=== PATIENT | male | born 1965 | race Caucasian/White ===

== ENCOUNTER 2018-01-23 06:09 | Inpatient (IN) | payer BC ==
[2018-01-05 14:20] VITALS: BMI 34.0
--- NOTE | 2018-01-05 15:03 | PAT Medication Instructions ---
Service Date Jan 05, 2018. Current Home Medication List Naproxen (Aleve), 220 MG PO Q12 PRN for Pain [[employer] Vitamin], 1 TAB PO QAM Medication Instructions For Your Scheduled Surgery - Check with surgeon for for instructions: Naproxen (Aleve), 220 MG PO Q12 PRN for Pain - Hold the following medications 2 weeks prior to surgery: [[employer] Vitamin], 1 TAB PO QAM If you have any questions please call us at [phone] or [phone] or [phone]
--- NOTE | 2018-01-05 15:23 | DIAGNOSTIC IMAGING REPORT ---
CHEST 2 VIEWS ROUTINE CLINICAL HISTORY: pat preoperative COMPARISON STUDY: No previous studies for comparison. FINDINGS: The bones soft tissues and hemidiaphragms are normal. The cardiomediastinal silhouette is normal. The lungs are clear. The pulmonary vasculature is normal. IMPRESSION: Negative chest. The above report was generated using voice recognition software. It may contain grammatical, syntax or spelling errors. Electronically signed by: Victor Hugo Landrum M.D. 01/05/2018 3:22 PM Dictated Date/Time: 01/05/2018 3:22 PM
[2018-01-05 15:42] LABS: PTT PATIENT 24.3 SECONDS (21.0-31.0)
[2018-01-06 06:42] LABS: HEMOGLOBIN A1C 6.6 % (4.5-5.6)
--- NOTE | 2018-01-16 15:22 | HISTORY & PHYSICAL EXAMINATION ---
DATE OF ADMISSION: 01/23/2018 CHIEF COMPLAINT: Left knee pain. HISTORY OF PRESENT ILLNESS: Mr. Rosario is a 52-year-old male with a multiple year history of left knee pain. The patient rates his pain a 7/10. He has pain with his daily activities. He has limited standing and walking tolerance. Pain is worse with weightbearing. The patient has had injections, bracing, NSAIDs and knee arthroscopy without relief. He has failed conservative treatment and is scheduled for left knee replacement. PAST MEDICAL HISTORY: Seizure, last episode 2001. He denies diabetes, heart disease or DVT. PAST SURGICAL HISTORY: Left knee arthroscopy, left hand laceration. SOCIAL HISTORY: The patient denies alcohol use. He smokes 3-4 packs per week x40 years. He lives in a 3-phuong home. He is and currently works as a truck driver's offsider. FAMILY HISTORY: Negative for DVT. MEDICATIONS: Aleve, Nugenix and testosterone. ALLERGIES: None. REVIEW OF SYSTEMS: See HPI. Ten other systems reviewed, all negative. PHYSICAL EXAMINATION: VITAL SIGNS: Height 6 feet 2 inches, weight 279 pounds. GENERAL: This is a well-developed, well-nourished male who is alert and oriented x3. Mood and affect are appropriate. HEENT: Normocephalic, atraumatic. Mucous membranes are moist and intact. NECK: Supple without lymphadenopathy. HEART: Regular rate and rhythm without murmurs, rubs or gallops. LUNGS: Clear to auscultation without wheezes or rhonchi. ABDOMEN: Soft and nontender. Bowel sounds are equal and active. EXTREMITIES: No ecchymosis, redness or warmth. He has varus deformity. Range of motion is from 5-110 degrees with no laxity. The patient has mild effusion. He is neurovascularly intact with +5/5 strength. X-RAY EXAMINATION: AP and lateral views show joint space narrowing and osteophyte formation. IMPRESSION: Degenerative joint disease, left knee. PLAN: The patient will be admitted for a left total knee arthroplasty. We will plan on aspirin for DVT prophylaxis. The patient is going to have [facility] for home physical therapy. Smoking cessation was discussed and the patient is aware that he is higher risk because of that.
[2018-01-23] VITALS (10 sets, daily range): BP systolic 112–150; BP diastolic 74–99; PULSE 82–106; TEMP 36.5–36.8; O2SAT 93–99; Ht 190.5 cm; Wt 126.1 kg
[~2018-01-23] VITALS: Ht 190.5 cm; Wt 126.1 kg
[~2018-01-23 06:09] MED LIST: ACETAMINOPHEN 500 MG TAB PO SCH; CEFAZOLIN 3000MG IV PUSH 22.5 ML IV SCH; CeleBREX 200 MG CAP PO SCH; DEXAMETHASONE 4 MG TAB PO SCH; FAMOTIDINE 20 MG TAB PO SCH; GABAPENTIN 900 MG PO SCH; LACTATED RINGER'S 1000ML 1,000 ML IV SCH; LACTATED RINGER'S 1000ML 500 ML IV SCH; LACTATED RINGER'S 1000ML IV SCH; METOCLOPRAMIDE HCL 10 MG TAB PO SCH; NAPR1TAB9 PO; ROPIVACAINE 5MG/ML 30 ML 150 MG, BUPIVACAINE 0.5% MPF INJ 30 ML, EpINEphrine HCL INJ 0.... INFIL SCH; [UNRECOGNIZED DRUG - OTHER] PO
[2018-01-23] MEDS: TRANEXAMIC ACID INJ 1,000 MG x 2 Bags IV SCH ×4 (06:30→07:49)
[2018-01-23] MEDS ORDERED: POVIDONE-IODINE OP SOLN 30 ML BTL ONE (06:49)
[2018-01-23] MEDS ORDERED: BACITRACIN 50000 UNIT VIAL ONE (06:49)
[2018-01-23] MEDS ORDERED: ORTHO JOINT ANESTHETIC ONE (06:49)
--- NOTE | 2018-01-23 07:08 | History & Physical Bridge Note ---
H&P Re-Evaluation Bridge Note: I have examined the patient, reviewed the History & Physical and in the interval since the performance of the History & Physical I have noted the following changes of clinical significance: No changes noted
[2018-01-23] MEDS ORDERED: EpHEDrine SULFATE 50MG/5ML SYR ONE (07:09)
[2018-01-23] MEDS ORDERED: PROPOFOL IV EMULSION 10 MG/ML 20 ML VIAL IV ONE (07:09)
[2018-01-23] MEDS ORDERED: MIDAZOLAM HCL 1 MG/ML 2ML VIAL ONE (07:09)
[2018-01-23] MEDS ORDERED: LIDOCAINE HCL 2% 2 ML VIAL (20MG/ML) ONE (07:09)
[2018-01-23] MEDS ORDERED: PHENYLEPHRINE 100MCG/ML 5ML SYR ONE (07:09)
[2018-01-23] MEDS ORDERED: FENTANYL CITRATE INJ 50 MCG/1 ML 2 ML VIAL ONE (07:09)
[2018-01-23] MEDS ORDERED: ROPIVACAINE 0.5% 5 MG/ML 30 ML VIAL ONE (07:37)
[2018-01-23] MEDS ORDERED: BUPIVACAINE 0.5 % 5 MG/1 ML PF 10ML VIAL ONE (07:37)
[2018-01-23] MEDS ORDERED: EpHEDrine SULFATE INJ 50 MG/ML AMP IV PRN (09:00)
[2018-01-23] MEDS ORDERED: ATROPINE SULFATE 0.1 MG/ML 5ML SYR IV PRN (09:00)
--- NOTE | 2018-01-23 09:29 | [facility] Post Operative Brief Note ---
Immediate Operative Summary Operative Date Jan 23, 2018. Pre-Operative Diagnosis Left knee degenerative joint disease Post-Operative Diagnosis Left knee degenerative joint disease Procedure(s) Performed Left total knee arthroplasty, cemented utilizing 6 [email or web address] journey to patient match total knee arthroplasty size 8 femur 7 tibia 10 probably [address] Sterling Oyster Picker Surgeon(s) Monty Stuart PA-C Estimated Blood Loss 5 cc Findings Consistent with Post-Op Diagnosis Specimens A: Left knee bone and tissue Anesthesia Type MAC Spinal Regional Complication(s) none Disposition Disposition: Recovery Room / PACU
--- NOTE | 2018-01-23 09:30 | [facility] Operative Report ---
Operative Report Operative Date Jan 23, 2018. Pre-Operative Diagnosis Left knee degenerative joint disease Post-Operative Diagnosis Left knee degenerative joint disease Procedure(s) Performed Left total knee arthroplasty, cemented utilizing 6 [employer]y nephew journey to patient match total knee arthroplasty size 8 femur 7 tibia 10 probably [address] Sterling Biodiesel Production Associate Surgeon(s) Monty Stuart PA-C Estimated Blood Loss 5 cc Findings Patient presents with severe end-stage DJD with subchondral sclerosis cystic changes loose bodies osteophytes varus alignment bone the bone changes for total knee arthroplasty Specimens A: Left knee bone and tissue Anesthesia Type MAC Spinal Regional Complication(s) none Disposition Recovery Room / PACU Indications Marginal osteophyte subchondral sclerosis large loose bodies sclerosis varus alignment bone the bone changes no response to conservative therapy Description of Procedure After proper prepping and draping of the left lower extremity anterior midline incision was made over the region of the extensor extensor mechanism after meticulous hemostasis was obtained and maintained in subcutaneous tissues a medial parapatellar incision was made The patella was subluxed lateralward the medial lateral gutter were cleaned from any hypertrophic synovitis and scar tissue of the distal femoral block was placed and the distal femoral osteotomy cut was made subsequently the chamfers anterior and posterior osteotomy cuts were made utilizing the 4-in-1 block the tibia was subsequently subluxed anteriorward medial and ateral meniscal remnants were excised in their entirety remnants of the anterior and posterior cruciate ligaments were excised in their entirety excellent exposure of the proximal tibia was obtained the tibial osteotomy guide was placed on the proximal tibial osteotomy cut was made once again the knee was irrigated with copious amounts of sterile saline solution the patella was subsequently everted lateralward thickened scar tissue around the patella was removed the patella was subsequently cut utilizing a freehand technique and was drilled prepared for final preparation and placement of patella socially flexion-extension gaps were checked and the equal and symmetric trials were placed to the appropriate femoral and tibial trials with poly-spacer being placed for equal flexion and extension gaps and full range of motion including extension to 0 and flexion to 140 the trial components after having been taken to recovery range of motion was subsequently removed meticulous hemostasis was obtained and maintained subsequently a knee block injection of joint cocktail including ropivacaine 0.5% 150 mg. Bupivacaine 0.5 % epinephrine 1-200,030 mL's toradol 30 mg dexamethasone 4 mg ketamine 10 mg clonidine 100 micrograms normal saline solution 30 mg was infiltrated into the soft tissues of the posterior knee medial lateral gutters and periosteal synovium special attention was paid to protect neurovascular structures at all times subsequently trial components having been removed the knee was irrigated with sterile saline solution. debris was removed the proximal tibia was subsequently prepared and was made ready for the placement of the tibial component tibial component was also cemented and tamped into position the femoral component was subsequently placed and cemented in the position the patellar component was subsequently cemented in position because hemostasis once again obtained and maintained wound having been thoroughly irrigated with debridement and debridement lavage was performed as well as a medial parapatellar incision closed with #1 Vicryl in interrupted fashion subcutaneous was closed with #2 Vicryl skin was closed with skin clips. PA-C was necessary for prepping and drapping as well as wound closure of deep fascia Sub cutaneous tissue and skin and was necessary for the case. A sterile compressive dressing was placed patient was taken to recovery in stable condition of report dictated by Asher I attest to the content of the Intraoperative Record and any orders documented therein. Any exceptions are noted below. I attest to the content of the Intraoperative Record and any orders documented therein. Any exceptions are noted below.
[2018-01-23] MEDS ORDERED: TAMSULOSIN HCL 0.4 MG CAP PO PRN (10:15)
[2018-01-23] MEDS ORDERED: ONDANSETRON INJ 2 MG/ML 2 ML VIAL IV PRN (10:15)
[2018-01-23] MEDS ORDERED: MAGNESIUM HYDROXIDE SUSP 30 ML UDC PO PRN (10:15)
[2018-01-23] MEDS ORDERED: ALUMINUM/MAGNESIUM/SIMETH (MAALOX MAX) 30 ML UDC PO PRN (10:15)
[2018-01-23] MEDS ORDERED: MoRPHine SULFATE 4 MG/ML 1 ML CARP\\VIAL IV PRN (10:15)
--- NOTE | 2018-01-23 11:02 | DIAGNOSTIC IMAGING REPORT ---
L KNEE 1 OR 2 VIEWS ROUTINE CLINICAL HISTORY: AP/LATERAL IN PACU LEFT KNEE postoperative evaluation COMPARISON: None. DISCUSSION: Evidence for a total left knee arthroplasty. Good contact between prosthetic and underlying bone. Surgical drains are in position. There is no evidence for soft tissue swelling. IMPRESSION: Anatomic alignment status post total left knee arthroplasty. The above report was generated using voice recognition software. It may contain grammatical, syntax or spelling errors. Electronically signed by: Victor Hugo Landrum M.D. 01/23/2018 11:01 AM Dictated Date/Time: 01/23/2018 11:01 AM
--- NOTE | 2018-01-23 11:10 | Anesthesiology Progress Note ---
Anesthesia Post Op Note Date & Time Jan 23, 2018 at 11:10 Vital Signs Pain Intensity: 0 Vital Signs Past 12 Hours Date Time Temp Pulse Resp B/P (MAP) Pulse Ox O2 Delivery O2 Flow Rate FiO2 01/23/18 11:05 36.3 79 18 107/80 97 Nasal Cannula 3 01/23/18 10:55 89 16 117/80 97 Nasal Cannula 3 01/23/18 10:45 81 16 132/88 98 Nasal Cannula 3 01/23/18 10:35 84 16 121/81 97 Nasal Cannula 3 01/23/18 10:25 84 16 110/62 97 Nasal Cannula 3 01/23/18 10:15 86 14 108/69 96 Nasal Cannula 3 01/23/18 10:05 36.5 83 12 106/65 97 Oxymask 5 01/23/18 06:50 36.5 90 18 143/99 99 Room Air Notes Mental Status: alert / awake / arousable, participated in evaluation Pt Amnestic to Procedure: Yes Nausea / Vomiting: adequately controlled Pain: adequately controlled Airway Patency, RR, SpO2: stable & adequate BP & HR: stable & adequate Hydration State: stable & adequate Neuraxial Anesthesia: was administered, sensory block is resolving Anesthetic Complications: no major complications apparent
[2018-01-23] MEDS: D5W AND 1/2NSS + 20MEQ KCL 1,000 ML IV SCH ×2 (13:31→22:46)
[2018-01-23] MEDS: OXYCODONE HCL IR 5 MG TAB (IMMEDIATE RELEASE) PO PRN ×3 (14:01→21:25)
[2018-01-23] MEDS: ACETAMINOPHEN 500 MG TAB PO SCH ×2 (15:25→23:33)
[2018-01-23] MEDS: CEFAZOLIN IV 2,000 MG in SYRINGE 0 ML IV SCH ×2 (15:26→23:33)
[2018-01-23] MEDS: FERROUS GLUCONATE 324 MG TAB PO SCH (17:44)
[2018-01-23] MEDS: SENNA 8.6 MG TAB PO SCH (21:00)
[2018-01-23] MEDS: DOCUSATE SODIUM 100 MG CAP PO SCH (21:00)
[2018-01-23] MEDS: ASPIRIN 81 MG ECTAB PO SCH (21:23)
[2018-01-23] MEDS: CeleBREX 200 MG CAP PO SCH (21:23)
[2018-01-24 03:45] VITALS: BP 133/86; PULSE 88; TEMP 36.6; O2SAT 97
[2018-01-24] MEDS: OXYCODONE HCL IR 5 MG TAB (IMMEDIATE RELEASE) PO PRN ×6 (05:12→22:09)
--- NOTE | 2018-01-24 06:43 | Orthopedic Progress Note ---
Orthopedic Progress Note Date of Service Jan 24, 2018. Subjective Post OP Day: 1 (s/p Left TKA) Reports: feeling well, pain controlled w PO medications, Denies: complaints, chest pain, SOB, nausea / vomiting, light headedness, calf pain Objective calves soft nontender, N/V intact, capillary refill less than 2 sec., dressing C /D/I, A&O x3, toes mobile Date Time Temp Pulse Resp B/P (MAP) Pulse Ox O2 Delivery O2 Flow Rate FiO2 01/24/18 03:45 36.6 88 16 133/86 (102) 97 Room Air 01/23/18 23:30 Room Air 01/23/18 23:05 36.8 87 16 134/81 (98) 94 Room Air 01/23/18 20:21 Room Air 01/23/18 19:29 36.6 98 20 149/84 (105) 93 Room Air 01/23/18 15:09 36.6 106 20 132/75 (94) 94 Room Air 01/23/18 14:35 85 18 150/74 (99) 94 01/23/18 13:25 95 18 131/81 (98) 98 01/23/18 12:25 86 18 121/79 (93) 97 01/23/18 12:02 90 18 113/78 (90) 96 01/23/18 11:58 36.6 88 18 118/74 (89) 94 Nasal Cannula 2.0 01/23/18 11:25 Nasal Cannula 01/23/18 11:25 36.5 82 18 112/75 (87) 97 Nasal Cannula 2.0 01/23/18 11:25 97 Nasal Cannula 2.0 01/23/18 11:05 36.3 79 18 107/80 97 Nasal Cannula 3 01/23/18 10:55 89 16 117/80 97 Nasal Cannula 3 01/23/18 10:45 81 16 132/88 98 Nasal Cannula 3 01/23/18 10:35 84 16 121/81 97 Nasal Cannula 3 01/23/18 10:25 84 16 110/62 97 Nasal Cannula 3 01/23/18 10:15 86 14 108/69 96 Nasal Cannula 3 01/23/18 10:05 36.5 83 12 106/65 97 Oxymask 5 01/23/18 06:50 36.5 90 18 143/99 99 Room Air Laboratory Results 24 Hours: Test 01/24/18 04:44 Assessment & Plan Assessment: POD #1 s/p Left TKA -PT/OT -dvt proph with tobin/scd/asa -plan for d/c home with HHPT - [facility] Discharge Planning Discharge Planning: home with home health DVT Prophylaxis: TEDs, SCDs, ASA
[2018-01-24 07:14] LABS: HEMOGLOBIN 12.8 g/dL (14.0-18.0); MEAN CELL VOLUME 83.9 fL (80-100); MEAN CORPUSCULAR HGB CONC 34.6 g/dl (32-36); MEAN PLATELET VOLUME 10.9 fL (7.4-10.4); PLATELET COUNT 174 K/uL (130-400); RED CELL DISTRIBUTION WIDTH CV 14.1 % (11.5-14.5); RED CELL DISTRIBUTION WIDTH SD 43.4 fL (36.4-46.3); WHITE BLOOD COUNT 14.82 K/uL (4.8-10.8)
[2018-01-24 07:46] LABS: CALCIUM 8.4 mg/dl (8.5-10.1); CREATININE 1.01 mg/dl (0.60-1.40); POTASSIUM 4.3 mmol/L (3.5-5.1)
[2018-01-24 07:47] VITALS: BP 142/88; PULSE 86; TEMP 36.5; O2SAT 97
[2018-01-24] MEDS: ACETAMINOPHEN 500 MG TAB PO SCH ×2 (08:00→16:04)
[2018-01-24] MEDS: D5W AND 1/2NSS + 20MEQ KCL 1,000 ML IV SCH (08:24)
[2018-01-24] MEDS: FERROUS GLUCONATE 324 MG TAB PO SCH ×3 (08:25→18:23)
[2018-01-24] MEDS: DOCUSATE SODIUM 100 MG CAP PO SCH ×2 (08:25→20:34)
[2018-01-24] MEDS: CeleBREX 200 MG CAP PO SCH ×2 (08:25→20:34)
[2018-01-24] MEDS: MULTIVITAMIN TAB PO SCH (08:25)
[2018-01-24] MEDS: ASPIRIN 81 MG ECTAB PO SCH ×2 (08:26→20:34)
[2018-01-24 08:46] VITALS: O2SAT 97
--- NOTE | 2018-01-24 08:47 | Discharge Instructions ---
Discharge Instructions Date of Service Jan 24, 2018. Admission Reason for Admission: Left Knee Osteoarthritis Discharge Discharge Diagnosis / Problem: left total knee replacement Discharge Goals Goal(s): Decrease discomfort, Improve function, Increase independence Activity Recommendations Activity Limitations: as noted below Weightbearing Status: Left weightbearing (as tolerated) . Instructions / Follow-Up Instructions / Follow-Up ACTIVITY RECOMMENDATIONS: SELF CARE INSTRUCTIONS AFTER TOTAL KNEE REPLACEMENT A. You may need to continue a physical therapy program after discharge from the hospital. There are several options available to you. Your doctor will assist you in selecting the best one for you. 1. An out-patient facility 2 to 3 times a week for therapy or home therapy. 2. Continue working on all exercises taught to you in the hospital. Your goals should be to increase bending of your knee to 90 degrees and beyond and to fully straighten your knee. B. You may progress at your own pace from walking with a walker or crutches to a cane; then to no assistive devices. C. Make walking a part of your daily routine. Be up as much as comfortable with rest periods throughout the day. Rest with leg elevation is very important. Use the ice wrap frequently for the first 3-4 weeks. D. There are no restrictions on activities. You may ride in a car, shop, participate in band sawyer and all social activities. E. Wear the long elastic stockings (LUCRETIA hose) 20 hours a day for 2 weeks after surgery. They can be removed several times a day for laundering and for a bath. F. You may shower, no tub baths until cleared by your doctor. SPECIAL CARE INSTRUCTIONS: VERY IMPORTANT TO READ AND REVIEW A. There are a few signs you need to watch for after you are home. Call [facility] if you notice any of the followin. Increased severe knee pain. Some pain is expected especially when you exercise. 2. Increased swelling in your leg or knee; pain or swelling of the calf muscle in either lower leg. 3. Any fluid drainage from the incision. 4. Shortness of breath or chest pain. B. Please call [facility] at if you have any concerns or questions about your operation or recovery. The doctor or his nurse will return your call promptly. C. You must take antibiotics before dental work, bladder, bowel or other surgery. Your doctor will provide you with a permanent care to carry describing this precaution. IMPORTANT: * REMEMBER TO TAKE ASPIRIN, 81 MG, TWICE DAILY FOR 4 WEEKS UNLESS OTHERWISE DIRECTED. THIS IS YOUR BLOOD THINNER. * HIGH RISK PATIENTS MAY BE PRESCRIBED A STRONGER BLOOD THINNER. THIS WILL BE PROVIDED AT DISCHARGE. * CALL IF INCREASED PAIN, REDNESS, DRAINAGE OR FEVER GREATER THAT 101. * WEAR LUCRETIA HOSE 20 HOURS PER DAY FOR 2 WEEKS. * YOU MAY HAVE A LARGE BAND-AID LIKE DRESSING (SILVERON). THIS WILL REMAIN ON YOUR INCISION FOR 7 DAYS, THEN CAN BE REMOVED. IF INCISION IS LEAKING THROUGH DRESSING, CALL THE OFFICE . *DERMABOND Prineo- This is a mesh tape dressing that is covered with glue. It should remain in place until the incision is properly healed, usually 10-14 days. This dressing is designed to naturally slough off. You may trim the excess mesh tape as it peels off. Incision may be briefly wet in a shower. Dry immediately by blotting with a clean, dry towel. Do not bath or swim until instructed by your doctor. Do not scratch, rub, or pick at the dressing. Do not apply any topical ointments or lotions until dressing is completely removed and/or instructed by your doctor. There may be a small piece of suture material at one end of your incision. Do not pull or trim this. If it is bothersome or catching on clothing, you may cover it with a band-aid. FOLLOW UP VISIT: If appointment is not already scheduled: Please call [facility] to make a follow-up appointment for 2 weeks after your surgery at . Current Hospital Diet Patient's current hospital diet: Regular Diet Discharge Diet Recommended Diet: Regular Diet Procedures Procedures Performed: Left total knee arthroplasty, cemented utilizing 6 [employer] journey to patient match total knee arthroplasty size 8 femur 7 tibia 10 probably 35 oval patella Pending Studies Studies pending at discharge: no Laboratory Results Hemoglobin A1c Test 01/05/18 14:45 Range/Units Estimated Average Glucose 143 mg/dl Hemoglobin A1c 6.6 H 4.5-5.6 % Medical Emergencies . Who to Call and When: Medical Emergencies: If at any time you feel your situation is an emergency, please call 911 immediately. . Non-Emergent Contact Non-Emergency issues call your: Primary Care Provider, Surgeon . "Provider Documentation" section prepared by Victor Hugo Hobbs. . [facility] Monitoring Program Search Results: patient reviewed within database, no issues identified
--- NOTE | 2018-01-24 10:50 | Anesthesiology Progress Note ---
Anesthesia Post Op Note Date & Time Jan 24, 2018 at 10:50 Vital Signs Pain Intensity: 4.0 Vital Signs Past 12 Hours Date Time Temp Pulse Resp B/P (MAP) Pulse Ox O2 Delivery O2 Flow Rate FiO2 01/24/18 08:46 97 Room Air 01/24/18 07:47 36.5 86 18 142/88 (106) 97 Room Air 01/24/18 07:45 Room Air 01/24/18 03:45 36.6 88 16 133/86 (102) 97 Room Air 01/23/18 23:30 Room Air 01/23/18 23:05 36.8 87 16 134/81 (98) 94 Room Air Notes Mental Status: alert / awake / arousable, participated in evaluation Pt Amnestic to Procedure: Yes Nausea / Vomiting: adequately controlled Pain: adequately controlled Airway Patency, RR, SpO2: stable & adequate BP & HR: stable & adequate Hydration State: stable & adequate Neuraxial Anesthesia: was administered, sensory block resolved Anesthetic Complications: no major complications apparent
[2018-01-24 11:38] VITALS: BP 140/74; PULSE 92; TEMP 36.4; O2SAT 96
[2018-01-24] MEDS: TRAMADOL HCL 50 MG TAB PO PRN ×3 (11:38→21:35)
[2018-01-24] MEDS ORDERED: RXC5 PO (13:39)
[2018-01-24] MEDS ORDERED: CLB200 PO (13:39)
[2018-01-24] MEDS ORDERED: CLC100 PO (13:39)
[2018-01-24] MEDS ORDERED: ASPEC81 PO (13:39)
[2018-01-24] MEDS ORDERED: ACET-24 PO (13:39)
[2018-01-24] MEDS ORDERED: ONDA-170 PO (13:39)
[2018-01-24 15:15] VITALS: BP 132/75; PULSE 93; TEMP 36.5; O2SAT 97
[2018-01-24] MEDS: SENNA 8.6 MG TAB PO SCH (20:34)
[2018-01-25 00:06] VITALS: BP_SYST 126; BP_SYST 148; BP_DIAS 75; BP_DIAS 89; PULSE 83; TEMP 36.5; TEMP 36.8; O2SAT 94; O2SAT 96
[2018-01-25 00:20] VITALS: O2SAT 94
[2018-01-25] MEDS: ACETAMINOPHEN 500 MG TAB PO SCH ×2 (00:29→07:32)
[2018-01-25] MEDS: OXYCODONE HCL IR 5 MG TAB (IMMEDIATE RELEASE) PO PRN ×2 (04:31→08:36)
--- NOTE | 2018-01-25 06:59 | Orthopedic Progress Note ---
Orthopedic Progress Note Date of Service Jan 25, 2018. Subjective Post OP Day: 2 Reports: feeling well, pain controlled w PO medications, Denies: complaints, chest pain, SOB, nausea / vomiting, light headedness, calf pain Objective calves soft nontender, N/V intact, capillary refill less than 2 sec., dressing C /D/I, A&O x3, toes mobile Date Time Temp Pulse Resp B/P (MAP) Pulse Ox O2 Delivery O2 Flow Rate FiO2 01/25/18 00:20 94 Room Air 01/25/18 00:06 36.8 83 16 148/89 (108) 94 Room Air 01/24/18 16:00 Room Air 01/24/18 15:15 36.5 93 20 132/75 (94) 97 Room Air 01/24/18 11:38 36.4 92 18 140/74 (96) 96 Room Air 01/24/18 08:46 97 Room Air 01/24/18 07:47 36.5 86 18 142/88 (106) 97 Room Air 01/24/18 07:45 Room Air Assessment & Plan Assessment: POD #2 s/p Left TKA -PT/OT -dvt proph with tobin/scd/asa -plan for d/c home with HHPT - [facility] Discharge Planning Discharge Planning: home with home health DVT Prophylaxis: TEDs, SCDs, ASA
[2018-01-25 07:10] VITALS: BP 112/72; PULSE 90; TEMP 36.6; O2SAT 97
[2018-01-25] MEDS: FERROUS GLUCONATE 324 MG TAB PO SCH (08:36)
[2018-01-25] MEDS: MULTIVITAMIN TAB PO SCH (08:36)
[2018-01-25] MEDS: DOCUSATE SODIUM 100 MG CAP PO SCH (08:37)
[2018-01-25] MEDS: CeleBREX 200 MG CAP PO SCH (08:37)
[2018-01-25] MEDS: ASPIRIN 81 MG ECTAB PO SCH (08:37)
[2018-01-25] MEDS: TRAMADOL HCL 50 MG TAB PO PRN (09:22)
[2018-01-25 11:03] VITALS: BP 112/72; PULSE 90; TEMP 36.6; O2SAT 97
== END 2018-01-25 11:50 | disposition home health service (06) | DRG 470 ==
LOC: C.ACU 06:09 → C.3E 06:45 → ENRESERV 10:41
PROVIDERS: ADMIT Orthopaedic Surgery; ATTEND Orthopaedic Surgery
PROC: 0SRD0J9 Replacement of Left Knee Joint with Synthetic Substitute, Cemented, Open Approach (ICD-10-PCS; principal; 2018-01-23 08:30)
DX: M17.12 Unilateral primary osteoarthritis, left knee (principal); M21.162 Varus deformity, not elsewhere classified, left knee; M25.462 Effusion, left knee; E66.9 Obesity, unspecified; F17.210 Nicotine dependence, cigarettes, uncomplicated; Z68.34 Body mass index [BMI] 34.0-34.9, adult